=== PATIENT | male | born 1960 | race Caucasian/White ===

== ENCOUNTER 2022-10-29 08:44 | Day surgery (SDC) | payer OTHER, SELFPAY ==
[2022-10-29] VITALS (12 sets, daily range): BP systolic 114–154; BP diastolic 69–97; PULSE 50–68; RESP 14–16; TEMP 36.1–36.3; O2SAT 94–100; BMI 26.8
[2022-10-29] MEDS: LACTATED RINGERS 1000 ML 1,000 ML 100 ML IV (09:00)
[2022-10-29] MEDS: SODIUM CHLORIDE 0.9 % (FLUSH) 10 ML SYRINGE IVF (09:00)
--- NOTE | 2022-10-29 10:17 | W.ANESCHARGE ---
Anesthesia Charges Start Date/Time Anesthesia Start Date: 10/29/22 Anesthesia Start Time: 10:43 Stop Date/Time Anesthesia Stop Date: 10/29/22 Anesthesia Stop Time: 12:11
[2022-10-29] MEDS: CEFAZOLIN 2 GM INJ IVP (10:51)
--- NOTE | 2022-10-29 12:23 | W.ANESCHARGE ---
Anesthesia Charges Start Date/Time Anesthesia Start Date: 10/29/22 Anesthesia Start Time: 10:43 Stop Date/Time Anesthesia Stop Date: 10/29/22 Anesthesia Stop Time: 12:11
--- NOTE | 2022-10-29 14:12 | PM.GSPRC ---
Operative Note Date of procedure: 10/29/22 Pre-op diagnosis: Right inguinal hernia Post-op diagnosis: Same Type of Procedure: Laparoscopic right inguinal hernia repair Indications: Patient is a 62-year-old male who presented to clinic with a symptomatic right inguinal hernia. Different treatment options were reviewed, with patient deciding to proceed with operative intervention. Risks and benefits of operative intervention were discussed at length with the patient. Risks included but was not limited to: Bleeding, infection, risk of damage to surrounding structures, possible need for additional procedures, possible need to convert to an open operation and postoperative complications such as pneumonia, pulmonary emboli or NH. All questions and concerns were addressed with the patient agreeing to proceed. Procedure Description: After discussing the risks and benefits of the procedure, the patient signed informed consent.? The operative site was marked and the patient was brought to the operating room and placed on the operating table in supine position.? Care was taken to pad the patient's pressure points.?? The patient was then intubated by anesthesia.?? The operative site was then prepped and draped in the usual sterile fashion.? A time-out was then performed. A curvilinear incision was made below the umbilicus. Dissection was carried down to subcutaneous tissue until the anterior rectus fascia was encountered. This was incised off the midline. The rectus muscles were then retracted exposing the posterior fascia. A space maker port with a dissecting balloon was then introduced. The preperitoneal space was inflated under direct vision. The balloon was then removed and the preperitoneal space insufflated. A 10 mm 30 degree scope was then advanced and the area was surveyed for bleeding. Dissection began on the right side. Bill's ligament and the pubic bone was exposed medially. Following this dissection was carried out laterally. A indirect defect was noted. The sac was dissected free from the cord structures using a combination of sharp and blunt dissection. Once the sac was completely reduced, the cord structures were dissected circumfrentially and a piece of Parietex mesh for the appropriate side was placed into the abdomen. This was positioned around the cord structures. A Tacker was used to attach the mesh medially at Bill's ligament. Once this was completed the sac was placed on top of the mesh and the preperitoneal space desufflated under direct vision. The ports were removed. The fascia from the infraumbilical port was closed with 0 Vicryl. The skin incisions were closed with absorbable subcuticular suture. Sterile dressings were then applied. The scrotum was examined to ensure that both testicles were down. Instrument sponge and needle counts were correct at the end of the case. The patient was then woken and transported to the recovery area in stable condition. ? The patient tolerated the procedure well. Findings: Indirect right inguinal hernia Surgeon: Alison Campbell MD Estimated blood loss (mL): 5 Condition: stable Disposition: same day
== END 2022-10-29 13:50 | disposition home or self-care (01) ==
PROVIDERS: Visit Provider Surgery
PROC: (CPT 49650; principal; 2022-10-29 10:00)
DX: K40.90 Unilateral inguinal hernia, without obstruction or gangrene, not specified as recurrent (principal)
CPT/HCPCS: 49505; 00860; C1781; J0330; J0690; J1100; J2405; J2704; J3010; J3490; J7120